=== PATIENT | female | born 1990 | race Caucasian/White ===

== ENCOUNTER 2020-06-27 14:48 | Emergency (ER) | payer OTHER ==
[~2020-06-27 14:48] MED LIST: COLACE 100MG C100 MG PO; IBUPROFEN600 MG PO; IRON 100 PLUS1 EACH PO; KEFLEX CAP 500500 MG PO; LODINE CAP 300300 MG PO; PHENERGAN 25 MG25 M1 PO; PYRIDIUM100 MG PO; ZOFRAN ODT 4 MG4 MG PO
== END 2020-06-27 20:00 | disposition home or self-care (01) ==
LOC: ER1 14:48
DX: U07.1 COVID-19 (principal)
CPT/HCPCS: 71045; 81001; 84703; 87081; 87880; 99283; U0002

== ENCOUNTER 2021-01-10 11:20 | Emergency (ER) | payer OTHER | END 2021-01-10 15:08 | disposition home or self-care (01) | LOC: ER1 11:20 | DX: S93.401A Sprain of unspecified ligament of right ankle, initial encounter (principal); W22.8XXA Striking against or struck by other objects, initial encounter | CPT/HCPCS: 73610; 99283 ==